=== PATIENT | female | born 2000 | race Caucasian/White ===

== ENCOUNTER 2021-08-26 09:41 | Outpatient (CLI) | payer OTHER, SELFPAY ==
--- NOTE | 2021-08-26 10:15 | TELERAD_ITS ---
[address] [address] Phone:?[phone] Fax:?[phone] Referring Physician Information: Rosalva Lin [address] [facility] [address] Phone:?[phone] Fax:?[phone] Patient:?Giana Peraza D.O.B:?2000 Sex:?Female Phone:?[phone] [facility] MRN:?[id number] Exam Date:?08/26/2021 ? EXAM: MRI of the LEFT KNEE, without contrast CLINICAL: Female, 20 years old, with left knee pain INDICATION: Evaluate for knee derangement etiology. PRIOR SURGERY: Reported history of meniscus tear and subsequent surgery in June 2020. PLAIN FILMS: None available. COMPARISONS: No prior MRIs available. TECHNICAL: Using a 1.5 Arlene MR scanner and a localizing surface coil: 3.0 mm?sagittals: PD, PDFS 3.0 mm?coronals: PD, STIR 3.0 mm?axials: PD, T2FS SEDATION: None. CONTRAST: None. IMPRESSION: 1. Localized mild tendinopathy of the proximal patellar tendon with adjacent reactive soft tissue edema in keeping with that which could be associated with an element of any clinical presentation of patellar tendinitis or jumper's knee. 2. Residua of partial medial meniscectomy predominantly involving its middle third but with the appearance of approximately 1 cm oblique horizontal tear of mid inferior surface of its posterior horn, of indeterminate relative significance which may be correlated. 3. No lateral meniscus tear. 4. Small stable grade II-III chondromalacia and underlying cortical irregularity of the lateral femoral condyle with mild subjacent marrow edema, without osseous instability. 5. No pathologic knee effusion. 6. No lateral meniscus tear. 7. No cruciate or collateral ligament injuries. FINDINGS: Knee joint: Effusion: Physiologic left knee effusion. Popliteal cyst: None. Loose bodies: None. Subcutaneous and extra-articular soft tissues: Unremarkable. Ligaments: ACL: Intact ACL anteromedial and posterolateral bundles, without sprain or tear. PCL: Intact PCL, without acute or chronic injury. MCL: Intact MCL superficial and deep layers, without injury. FCL: Intact FCL, without injury. Posterolateral corner: No posterolateral corner soft tissue injury. Popliteus, biceps femoris, iliotibial band, popliteofibular ligament and lateral gastrocnemius are intact. Posteromedial corner: No posteromedial corner soft tissue injury. Semimembranosus, pes anserine tendons and posterior oblique ligament are without injury, tendinopathy or bursitis. Extensor mechanism: Patellar tendon: Mild thickening and signal alteration including T2 hyperintensity of intrasubstance and deep fibers of the central third of the proximal patellar attachment of patellar tendon with mild adjacent soft tissue edema of infrapatellar Hoffa's fat-pad appears in keeping with ongoing reactive changes of mild patellar tendinopathy (sagittal PD & PDFS series 5 & 6, image 18). Quadriceps tendon: Intact, without tendinopathy. Retinacula: Medial and lateral retinacula are intact. Fat pads: Mild edema of the superior anterior aspect of infrapatellar Hoffa's fat pad adjacent to the proximal patellar tendinopathy detailed above. Medial compartment: Medial meniscus: The middle third of the medial meniscus is abnormally small, presumed to represent residua of partial medial meniscectomy. An approximately 1 cm segment of oblique horizontal linear signal alteration extends through mid inferior surface of the medial meniscus posterior horn, posterior to the area of middle third partial meniscectomy mentioned above (sagittal PDFS & PD series 6 & 5, images 8-12). This suspected inferior surface tear extends through peripheral base of the medial meniscus posterior horn without extension through superior surface of the meniscus. No fragment displacement. No parameniscal cyst. No posterior root disruption or peripheral meniscal extrusion. Medial femoral condyle: No chondromalacia or osteochondral abnormality. Medial tibial plateau: No chondromalacia or osteochondral abnormality. Lateral compartment: Lateral meniscus: No articular surface, meniscosynovial junction or root tear. No displacement, extrusion or parameniscal cyst. Lateral femoral condyle: Small less than 1 cm mild osteochondral surface irregularity/depression by 1 to 1.5 mm with underlying irregular grade II-III chondromalacia and subjacent marrow sclerosis and edema, without osseous instability (sagittal PDFS & PD series 6 & 5, images 19-23; coronal PD & STIR series 7 & 8, image 17). Lateral tibial plateau: No chondromalacia or osteochondral abnormality. Patellofemoral joint: Patella: No chondromalacia or osteochondral abnormality. Trochlea: No chondromalacia or osteochondral abnormality. Proximal tibiofibular joint: Unremarkable, without evidence of ligament sprain injury, joint effusion or adjacent marrow edema. Bones: No stress/occult fractures or other marrow edema/pathology. Neurovascular: Popliteal artery: No demonstrable popliteal artery entrapment or predisposing gastrocnemius variant. No aneurysm or pseudoaneurysm. Popliteal vein: No fusiform or saccular venous aneurysm. Anterior tibial artery: No aberrant high-origin anterior tibial artery. Tibial nerve: No entrapment or distal edema/swelling at the soleal sling. Popliteal nerve: No intrinsic or extrinsic mass or edema/swelling. Common peroneal nerve: Normal to fibular head and neck level included. F Electronically signed on 08/26/2021 4:14:00 PM by Shashank Catalan M.D.
== END 2021-08-26 09:42 | disposition home or self-care (01) ==
LOC: MRI 09:47
PROVIDERS: PCP Emergency Medicine; Visit Provider Physician Assistant Surgical
DX: M25.562 Pain in left knee (principal); M23.222 Derangement of posterior horn of medial meniscus due to old tear or injury, left knee; M94.262 Chondromalacia, left knee
CPT/HCPCS: 73721

== ENCOUNTER 2021-09-09 14:22 | Outpatient (CLI) | payer OTHER, SELFPAY ==
[2021-09-11 15:35] LABS: Chlamydia DNA Amplified* Not Detected (No Detected)
[2021-09-11 15:36] LABS: GC DNA Amplified* Not Detected (No Detected)
== END 2021-09-09 14:23 | disposition home or self-care (01) ==
PROVIDERS: PCP Emergency Medicine; Visit Provider Physician Assistant
DX: N92.0 Excessive and frequent menstruation with regular cycle (principal); Z11.3 Encounter for screening for infections with a predominantly sexual mode of transmission
CPT/HCPCS: 84443; 87491; 87591

== ENCOUNTER 2023-08-03 16:13 | Outpatient (CLI) | payer OTHER, SELFPAY ==
[2023-08-03 20:23] LABS: Chlamydia DNA Amplified* NOT DETECTED (No Detected); GC DNA Amplified* NOT DETECTED (No Detected)
== END 2023-08-03 16:14 | disposition home or self-care (01) ==
PROVIDERS: PCP Emergency Medicine; Visit Provider Registered Nurse
DX: Z01.419 Encounter for gynecological examination (general) (routine) without abnormal findings (principal); N89.8 Other specified noninflammatory disorders of vagina; R53.83 Other fatigue; N92.6 Irregular menstruation, unspecified; R63.5 Abnormal weight gain; Z13.6 Encounter for screening for cardiovascular disorders; Z13.1 Encounter for screening for diabetes mellitus; Z11.3 Encounter for screening for infections with a predominantly sexual mode of transmission
CPT/HCPCS: 80061; 82306; 84443; 87491; 87591

== ENCOUNTER 2023-10-05 21:44 | Outpatient (CLI) | payer OTHER, SELFPAY ==
--- OUTSIDE RECORDS SUMMARY | 2023-10-05 21:46 | XMS_ITS | Referral Summary ---
Author Organization [employer] work Address [address] [place] [address] Care Team Providers Care Correspondence School Instructor Name Role Phone Unavailable Primary Care Provider Unavailabl e Allergies No known active allergies Medications Medication Sig Dispensed Refills Start Date End Date Status ondansetron (ZOFRAN-ODT) 4 MG disintegrating tablet Take ONE tablet (4 mg total) by mouth every 8 (eight) hours as needed for Nausea. 12 tablet 03/11/2022 Active naproxen (NAPROSYN) 500 MG tablet Take ONE tablet (500 mg total) by mouth 2 (two) times daily as needed for Pain. 14 tablet 03/11/2022 Active meclizine (ANTIVERT) 25 mg tablet Take ONE tablet (25 mg total) by mouth 3 (three) times daily as needed for Dizziness. 30 tablet 03/11/2022 Active Social History Tobacco Use Types Packs/Day Years Used Date Smoking Tobacco: Never Assessed Sex and Gender Information Value Date Recorded Sex Assigned at Not on file Gender Identity Not on file Sexual Orientation Not on file Last Filed Vital Signs Vital Sign Reading Time Taken Comments Blood Pressure 108/56 03/11/2022 6:22 PM EST Pulse 48 03/11/2022 6:22 PM EST Temperature 36.9 ??C (98.4 ??F) 03/11/2022 5:13 PM ES T Respiratory Rate 16 03/11/2022 6:22 PM EST Oxygen Saturation 100% 03/11/2022 6:22 PM EST Inhaled Oxygen Concentration - - Weight 76.8 kg (169 lb 5 oz) 03/11/2022 2:30 PM EST Height - - Body Mass Index - - Plan of Treatment Not on file
--- OUTSIDE RECORDS SUMMARY | 2023-10-05 21:46 | XMS_ITS | Clinical Summary ---
Author Organization [employer] [facility] Address [place], [place] [address] Care Team Providers Care Hospitality Recruiter Name Role Phone [facility] Provider + Allergies No known active allergies Medications Medication Sig Dispensed Refills Start Date End Date Status valACYclovir (VALTREX) 1 gram tablet Take 1 g by mouth once daily. 07/21/2022 Active Encounters Date Type Department Care Team Description 08/04/2023 Lab Requisition [facility] [phone] Unknown, Doctor from Last 3 Months Social History Tobacco Use Types Packs/Day Years Used Date Smoking Tobacco: Never Assessed Sex and Gender Information Value Date Recorded Sex Assigned at Not on file Gender Identity Not on file Sexual Orientation Not on file Last Filed Vital Signs Vital Sign Reading Time Taken Comments Blood Pressure 123/58 02/14/2023 12:26 PM FORMS ANALYSIS MANAGER Pulse 67 02/14/2023 12:26 PM FORMS ANALYSIS MANAGER Temperature 36.8 ??C (98.3 ??F) 02/14/2023 1 2:26 PM FORMS ANALYSIS MANAGER Respiratory Rate 16 02/14/2023 12:2 6 PM FORMS ANALYSIS MANAGER Oxygen Saturation 100% 02/14/2023 12: 26 PM FORMS ANALYSIS MANAGER Inhaled Oxygen Concentration - - Weight 88.8 kg (195 lb 11.2 oz) 023 12:26 PM FORMS ANALYSIS MANAGER Height - - Body Mass Index - - Plan of Treatment Not on file Procedures Procedure Name Priority Date/Time Associated Diagnosis Comments LAB TRACKING EVENT Routine 08/03/2023 4: 15 PM CDT STONE DRILLER THIN PREP PAP SCREEN IMAGED Routine 08/03/2023 4:15 PM CDT from Last 3 Months Results * LAB TRACKING EVENT (08/03/2023 4:15 PM CDT) Other (Other) Client Collect / Unknown 08/03/2023 4:15 PM CDT 08/04/2023 3:29 PM CDT Doctor Unknown LAB BILL ONLY [facility] [address] [place] [address], * STONE DRILLER THIN PREP PAP SCREEN IMAGED (08/03/2023 4:15 PM CDT) Case Report Gynecologic Cytology Report ? Case: [id number] ? Authorizing Provider: ??Unknown, Doctor ?Collected: ? 08/03/2023 1615 ? Ordering Location: ? [facility] ?Received: ?08/05/2023 1736 ? First Screen: ?Slime Osman ? Specimen: ?STONE DRILLER ThinPrep Vial Screening, Cervical ? 08/11/2023 2:20 PM CDT [facility] INTERPRETATION/ RESULT NEGATIVE FOR INTRAEPITHELIAL LESION OR MALIGNANCY (NIL) (none) 08/11/2023 2:20 PM CDT [facility] IMEN ADEQUACY Satisfactory for evaluation Endocervical component present 08/11/2023 2:20 PM CDT [facility] HPV REQUEST HPV not requested 2023 2:20 PM CDT [facility] Last Pap Result First Pap/Unknown 2:20 PM CDT [facility] Abnormal Pap or [place] Bx in last 5 years No 08/11/2023 2:20 PM CDT [facility] [place] Bx Done Today No 08/11/2023 2:20 PM CDT [facility] Additional Information 08/11/2023 2:20 PM CDT [facility] Comment: Interpreted at [facility] - [address], [place] [address] Automated Review Successful 08/11/2023 2:20 PM CDT [facility] Comment:Specimen processed s uccessfully by automated oxygraph operator device, ThinPrep Imaging System, [employer] Note The pap test is a screening technique, not a diagnostic procedure. It is used primarily to screen for squamous cancers and precursor lesions. Published studies have shown that it is subject to both false negative and false positive results. The pap test should not be used as the sole means to diagnose or exclude pre-malignant and malignant lesions. 08/11/2023 2:20 PM CDT [facility] Other (Cervical) 08/03/2023 4:15 PM CDT 08/05/2023 5:36 PM CDT Doctor Unknown PATHOLOGY/CYTOLOGY [facility] [address] [place] [address], from Last 3 Months Care Teams Hospitality Recruiter Relationship Specialty Start Date [facility] [address] [place] [address] PCP - General 02/14/23
--- OUTSIDE RECORDS SUMMARY | 2023-10-05 21:46 | XMS_ITS | Clinical Summary ---
Author Organization [employer] work Address [address] [place] [address] Care Team Providers Care Campus Director Name Role Phone Unavailable Primary Care Provider [...] Mass Index - - Plan of Treatment Health Maintenance Due Date Last Done Comments Hepatitis C Screening 2000 SDOH 2001 ANNUAL PHYSICAL EXAM 12/23/2003 HPV VACCINES (1 - 3-dose series) 2016 CHLAMYDIA SCREENING 2017 MENINGOCOCCAL GROUP B VACCIN E (1 of 2 - Patient Seeks Protection) 2017 HEPATITIS B VACCINES (ADULT) (1 of 3 - 19+ 3-dose series) 2020 TETANUS/PERTUSSIS Adult Vacc ine (One-time Booster) 2020 COVID-19 Vaccine (1 - 2022-2 4 season) 2022 Pap Smear 2022 Annual Adult Depression Screen 02/22/2023 INFLUENZA VACCINE (#1) 2023 Pneumococcal Vaccine Series (19-64) High Risk Aged Out No longer eligible b ased on patient's age to complete this topic
--- OUTSIDE RECORDS SUMMARY | 2023-10-05 21:46 | XMS_ITS | Referral Summary ---
Author Organization [employer] Address [address] [place] [address] Care Team Providers Care Portfolio Specialist Name Role Phone Clinic, [facility] Primary Care Provider Allergies No known active allergies Medications Medication Sig Dispensed Refills Start Date End Date Status sertraline (ZOLOFT) 100 MG tablet Take 100 mg by mouth 05/09/2018 Active ibuprofen (ADVIL/MOTRIN) 600 MG tablet Take 1 tablet (600 mg) by mouth every 6 hours as needed 20 tablet 11/22/2018 Active Active Problems No known active problems Social History Tobacco Use Types Packs/Day Years Used Date Smoking Tobacco: Never Smokeless Tobacco: Never Tobacco Cessation:Counseling Given: Yes Sex and Gender Information Value Date Recorded Sex Assigned at Not on file Gender Identity Not on file Sexual Orientation Not on file Last Filed Vital Signs Vital Sign Reading Time Taken Comments Blood Pressure 107/66 11/22/2018 8:15 PM CDT Pulse 56 11/22/2018 8:15 PM CDT Temperature 36.4 ??C (97.6 ??F) 11/22/2018 6:58 PM CD T Respiratory Rate 16 11/22/2018 8:58 PM CDT Oxygen Saturation 98% 11/22/2018 8:15 PM CDT Inhaled Oxygen Concentration - - Weight 79.9 kg (176 lb 2.4 oz) 11/22/2018 6:58 P M CDT Height 177.8 cm (5' 10) 06/20/2018 8:05 AM CDT Body Mass Index 25.27 06/20/2018 8:05 AM CDT Plan of Treatment Not on file Care Teams Portfolio Specialist Relationship Specialty Start Date End Date Clinic, [facility] [address] [place] [address] PCP - General 01/01/17
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
--- OUTSIDE RECORDS SUMMARY | 2023-10-05 21:46 | XMS_ITS | Clinical Summary ---
Author Organization [facility] Address [address] [place] [id number] Care Team Providers Care Tread Builder Name Role Phone Clinic, [facility] Primary Care Provider Allergies No known active [...] of Treatment Not on file Care Teams Tread Builder Relationship Specialty Start Date End Date Clinic, [facility] [address] [place] [id number] PCP - General 01/01/17
[2023-10-06 09:02] LABS: Lab Add On Test New Spec Needed
== END 2023-10-05 21:45 | disposition home or self-care (01) ==
LOC: NFLDREF 21:44
PROVIDERS: PCP Emergency Medicine; Visit Provider Registered Nurse
DX: D64.9 Anemia, unspecified (principal)
CPT/HCPCS: 82728; 83540; 83550